=== PATIENT | male | born 1930 | race African-American/Black ===

== ENCOUNTER 2017-05-17 17:50 | Emergency (ER) | payer MEDICARE, OTHER ==
[~2017-05-17] VITALS: Ht 180.3 cm; Wt 73.5 kg
[~2017-05-17 17:50] MED LIST: HTN PO; LAMO5TB. PO; LEVE100020 PO
[2017-05-17 18:09] VITALS: BP 193/98
[2017-05-17] MEDS ORDERED: LIDOCAINE 1% Multi-Dose 20 ML VIAL. ONE (18:37)
[2017-05-17] MEDS ORDERED: LIDOCAINE 1% PF 30 ML VIAL. INJ ONE (18:45)
[2017-05-17] MEDS ORDERED: DIPHTH,PERTUSS(ACELL),TET TOX 0.5 ML DISP.SYRIN. VAX IM ONE (18:45)
[2017-05-17] MEDS ORDERED: NEOMY/BACITR/POLYMYXIN OINT PACKET. TP ONE (19:45)
--- NOTE | 2017-05-17 20:05 | PHYS DOC ---
Past History Past Medical History: High Cholesterol, Hypertension, Seizure, Other Past Surgical History: Other Smoking: Non-smoker Alcohol Use: Occasionally Drug Use: None Adult General Chief Complaint Chief Complaint: LACERATION/AVULSION HPI HPI Patient is a 86-year-old male brought to the ED by family members after a fall. He was going to the bank, he stepped up on the curb but the curb was higher than he thought, and he fell face forward onto the sidewalk. He broke his glasses. He has a laceration to his left eyebrow and one to his left hand. He is right-handed. He was able to ambulate and in fact drove himself home after the fall and family members brought him in. Patient denies head pain. He denies neck pain. He denies injury to his face other than his left eyebrow. He denies pain to either hand, denies wrist pain, denies knee pain. He doesn't know when his last tetanus shot was. He is not on a blood thinner. Review of Systems Review of Systems Constitutional: Denies fever or chills [] Eyes: Denies change in visual acuity, redness, or eye pain [] HENT: Denies nasal congestion or sore throat [] Respiratory: Denies cough or shortness of breath [] Cardiovascular: Denies chest pain GI: Denies abdominal pain, nausea, vomiting, bloody stools or diarrhea [] : Denies dysuria or hematuria [] Musculoskeletal: Denies back pain or joint pain [] Integument: As in history of present illness Neurologic: Denies headache, focal weakness or sensory changes [] Current Medications Current Medications Current Medications Medications (Trade) Dose Ordered Sig/Leana Start Time Stop Time Status Last Admin Dose Admin Diphtheria/ Tetanus/Acell Pertussis (Boostrix) 0.5 ml ONCE ONCE 05/17/17 18:45 05/17/17 18:47 DC 05/17/17 18:39 0.5 ML Lidocaine HCl 20 ml STK-MED ONCE 05/17/17 18:37 05/17/17 18:38 DC Neomycin/ Polymyxin/ Bacitracin (Triple Antibiotic Ointment) 1 pkt 1X ONCE 05/17/17 19:45 05/17/17 19:46 DC 05/17/17 19:34 1 PKT Allergies Allergies Allergies Coded Allergies Type Severity Reaction Last Updated Verified Jwbpdrt-Szi-Xdz Reductase Inhibitor Allergy Intermediate Shortness of Air 03/19 Yes lisinopril Allergy Intermediate short of breath 05/17/17 Yes Physical Exam Physical Exam Constitutional: Well developed, well nourished, no acute distress, non-toxic appearance. Alert, mentating normally. HENT: Scalp without injury, left eyebrow laterally has a abrasion/laceration 2 cm in length, there are small, superficial lacerations over the left cheek. No bony tenderness of the left eyebrow or left cheek area. Bilateral external ears normal, lips, teeth, mouth and injured, oropharynx moist, no oral exudates, nose normal. [] Eyes: No eye injury or eyelid injury, conjunctiva normal, no discharge. [] Neck: Normal range of motion, no tenderness, supple, no stridor. Cervical spine nontender to palpation. Skin: Warm, dry, no erythema, no rash. [] Extremities: Left hand: No bony tenderness to palpation. Full range of motion of all fingers. Laceration into subcutaneous fat over the palmar aspect of the left fifth MCP joint. Wrist, forearm, elbow, unremarkable. Right upper extremity uninjured, nontender to palpation. Neurologic: Alert and oriented X 3, normal motor function, normal sensory function, no focal deficits noted. [] Current Patient Data Vital Signs Vital Signs Date Time Temp Pulse Resp B/P (MAP) Pulse Ox O2 Delivery O2 Flow Rate FiO2 05/17/17 18:09 97.2 65 18 98 Room Air EKG EKG [] Radiology/Procedures Radiology/Procedures Three-view x-rays of the left hand read by me. No acute bony injury. [] Course & Med Decision Making Course & Med Decision Making Pertinent Labs and Imaging studies reviewed. (See chart for details) 86-year-old male with a mechanical fall and laceration to his left eyebrow and left hand. He is not on a blood thinner. He has remained alert and appropriate since the fall. He did not have really a head injury per se, more of a left cheek trauma. Lacerations were repaired. Patient discharged to home with his family to watch him. In stable condition. Procedure: Repair of lacerations by me Left eyebrow laceration 2 cm length Prepped with Betadine, anesthetized with lidocaine 1% plain, irrigated with normal saline using a splash shield. A minimal amount of debridement was done of some loose abraded skin. The laceration was closed with 4 simple interrupted sutures of 5-0 nylon. Good result. It was covered with triple antibiotic ointment. Left palm laceration 3 cm length Prepped with Betadine, anesthetized with lidocaine 1% plain, irrigated with normal saline using a splash shield. Explored, no foreign body. The laceration was closed with 7 simple interrupted sutures of 4-0 nylon. Good result. It was dressed with Telfa and a gauze wrap by nursing staff. [] Dragon Disclaimer Dragon Disclaimer This chart was dictated in whole or in part using Voice Recognition software in a busy, high-work load, and often noisy Emergency Department environment. It may contain unintended and wholly unrecognized errors or omissions. Departure Departure: Impression: Primary Impression: Fall (on)(from) sidewalk curb, initial encounter Additional Impressions: Laceration of left eyebrow Laceration of left hand Disposition: 01 HOME, SELF-CARE Condition: IMPROVED Referrals: YUMI BONDS MD (PCP) Patient Instructions: Head Injury, Adult, [id number]-[id number], Laceration Care, Adult , [id number] Additional Instructions: For the eyebrow laceration, you may wash it gently in the shower, Pat dry. Apply Neosporin ointment to cover it. It is not necessary to bandage. The stitches should be removed in 5-6 days. The smaller lacerations on the left cheek were repaired with skin glue. These may be wet briefly to shower or wash your face as needed. Do not use Neosporin ointment on these because it dissolves skin glue. For the left hand laceration, leave it bandaged for 24 hours, then you may wet briefly to shower. Pat dry. Bandage with a gauze wrap or Band-Aid. The stitches should be removed in 12-14 days. You will be stiff and sore tomorrow. You may take Tylenol or ibuprofen as recommended by your doctor. Ice to areas of pain if needed. Problem Qualifiers JENNY REMY MD May 17, 2017 20:05
--- NOTE | 2017-05-18 08:37 | RAD ---
Examination: 3 views of the left hand History: History of injury, fall, hand laceration Comparison: None available Findings: The alignment of the metacarpophalangeal joints, interphalangeal grossly appears unremarkable. There is no acute fracture identified. Moderate degenerative changes identified in the first carpometacarpal joint. Mild degenerative changes identified in the metacarpophalangeal joints, interphalangeal joints. Impression: No acute osseous findings.
== END 2017-05-17 20:17 | disposition home or self-care (01) ==
LOC: EDBD → ER 17:50
DX: S01.112A Laceration without foreign body of left eyelid and periocular area, initial encounter (principal); S61.412A Laceration without foreign body of left hand, initial encounter; E78.00 Pure hypercholesterolemia, unspecified; I10 Essential (primary) hypertension; Z88.8 Allergy status to other drugs, medicaments and biological substances; W17.89XA Other fall from one level to another, initial encounter; Y93.89 Activity, other specified; Y99.8 Other external cause status; Y92.480 Sidewalk as the place of occurrence of the external cause
CPT/HCPCS: 12001; 12011; 73130; 90471; 90715; 99284; J2001

== ENCOUNTER 2017-05-24 13:30 | Emergency (ER) | payer MEDICARE, OTHER ==
[~2017-05-24] VITALS: Ht 180.3 cm; Wt 73.5 kg
[2017-05-24 14:04] VITALS: BP 137/69
--- NOTE | 2017-05-24 14:11 | PHYS DOC ---
Past History Past Medical History: High Cholesterol, Hypertension, Seizure, Other Past Surgical History: Other Smoking: Non-smoker Alcohol Use: Occasionally Drug Use: None Adult General Chief Complaint Chief Complaint: SUTURE/STAPLE REMOVAL [facility] HPI Here for suture removal on laceration just lateral to the left brow Review of Systems Review of Systems Constitutional: Denies fever or chills [] Eyes: Denies change in visual acuity, redness, or eye pain [] HENT: Denies nasal congestion or sore throat [] Respiratory: Denies cough or shortness of breath [] Cardiovascular: No additional information not addressed in HPI [] GI: Denies abdominal pain, nausea, vomiting, bloody stools or diarrhea [] : Denies dysuria or hematuria [] Musculoskeletal: Denies back pain or joint pain [] Integument: Denies rash or skin lesions [] Neurologic: Denies headache, focal weakness or sensory changes [] Endocrine: Denies polyuria or polydipsia [] Allergies Allergies Allergies Coded Allergies Type Severity Reaction Last Updated Verified Kbvabsb-Cjj-Bna Reductase Inhibitor Allergy Intermediate Shortness of Air 03/19 Yes lisinopril Allergy Intermediate short of breath 05/17/17 Yes Physical Exam Physical Exam Constitutional: Well developed, well nourished, no acute distress, non-toxic appearance. [] HENT: Normocephalic, atraumatic, bilateral external ears normal, oropharynx moist, no oral exudates, nose normal. [] Eyes: PERRLA, EOMI, conjunctiva normal, no discharge. [] Neck: Normal range of motion, no tenderness, supple, no stridor. [] Cardiovascular:Heart rate regular rhythm, no murmur [] Lungs & Thorax: Bilateral breath sounds clear to auscultation [] Abdomen: Bowel sounds normal, soft, no tenderness, no masses, no pulsatile masses. [] Skin: Warm, dry, no erythema, no rash. Healing laceration just above the left brow Back: No tenderness, no CVA tenderness. [] Extremities: No tenderness, no cyanosis, no clubbing, ROM intact, no edema. [] Neurologic: Alert and oriented X 3, normal motor function, normal sensory function, no focal deficits noted. [] Psychologic: Affect normal, judgement normal, mood normal. [] Current Patient Data Vital Signs Vital Signs Date Time Temp Pulse Resp B/P (MAP) Pulse Ox O2 Delivery O2 Flow Rate FiO2 05/24/17 14:04 97.7 67 18 100 Room Air EKG EKG [] Radiology/Procedures Radiology/Procedures [] Impressions: Healing laceration Course & Med Decision Making Course & Med Decision Making Sutures were removed by the nursing staff [] Dragon Disclaimer Dragon Disclaimer This chart was dictated in whole or in part using Voice Recognition software in a busy, high-work load, and often noisy Emergency Department environment. It may contain unintended and wholly unrecognized errors or omissions. Departure Departure: Referrals: YUMI BONDS MD (PCP) REBEKAH BOOGIE MD May 24, 2017 14:11
== END 2017-05-24 14:19 | disposition home or self-care (01) ==
LOC: ER 13:30 → EDBD 13:30 → ER 14:19
DX: S01.112D Laceration without foreign body of left eyelid and periocular area, subsequent encounter (principal); E78.00 Pure hypercholesterolemia, unspecified; I10 Essential (primary) hypertension; Z88.8 Allergy status to other drugs, medicaments and biological substances; X58.XXXD Exposure to other specified factors, subsequent encounter; Y99.8 Other external cause status; Y92.89 Other specified places as the place of occurrence of the external cause
CPT/HCPCS: 99281

== ENCOUNTER 2017-06-02 14:39 | Emergency (ER) | payer MEDICARE, OTHER ==
[~2017-06-02] VITALS: Ht 180.3 cm; Wt 73.5 kg
[2017-06-02 14:39] VITALS: BP 158/70
--- NOTE | 2017-06-02 14:59 | PHYS DOC ---
Past History Past Medical History: High Cholesterol, Hypertension, Seizure, Other Past Surgical History: Other Smoking: Non-smoker Alcohol Use: Occasionally Drug Use: None Adult General Chief Complaint Chief Complaint: SUTURE/STAPLE REMOVAL HPI HPI Patient is a 87-year-old male presenting to the emergency department for evaluation of left hand suture removal. No Complaints and there is no signs or symptoms of infection. Review of Systems Review of Systems Constitutional: Denies fever or chills [] Integument: Denies redness or warmth Allergies Allergies Allergies Coded Allergies Type Severity Reaction Last Updated Verified Pmzmdvh-Jzt-Jjp Reductase Inhibitor Allergy Intermediate Shortness of Air 03/19 Yes lisinopril Allergy Intermediate short of breath 05/17/17 Yes Physical Exam Physical Exam Constitutional: Well developed, well nourished, no acute distress, non-toxic appearance. [] Skin: [address] with no surrounding erythema inflammation or pain. EKG EKG [] Radiology/Procedures Radiology/Procedures [] Course & Med Decision Making Course & Med Decision Making Wound is clean dry and intact and sutures removed with no complications. Dragon Disclaimer Dragon Disclaimer This chart was dictated in whole or in part using Voice Recognition software in a busy, high-work load, and often noisy Emergency Department environment. It may contain unintended and wholly unrecognized errors or omissions. Departure Departure: Impression: Primary Impression: Visit for suture removal Disposition: 01 HOME, SELF-CARE Condition: GOOD Referrals: YUMI BONDS MD (PCP) Patient Instructions: Suture Removal-Brief TEREZA HERZOG DO Jun 02, 2017 14:59
== END 2017-06-02 15:08 | disposition home or self-care (01) ==
LOC: ER 14:39
DX: S61.412D Laceration without foreign body of left hand, subsequent encounter (principal); I10 Essential (primary) hypertension; E78.00 Pure hypercholesterolemia, unspecified; Z88.8 Allergy status to other drugs, medicaments and biological substances; X58.XXXD Exposure to other specified factors, subsequent encounter; Y99.8 Other external cause status; Y92.89 Other specified places as the place of occurrence of the external cause
CPT/HCPCS: 99281

== ENCOUNTER 2019-04-28 13:05 | Emergency (ER) | payer MEDICARE, OTHER ==
[~2019-04-28] VITALS: Ht 175.3 cm; Wt 72.6 kg
[~2019-04-28 13:05] MED LIST changes: -LAMO5TB. PO; +LAMO5TB.5 PO
--- NOTE | 2019-04-28 14:03 | PHYS DOC ---
Past History Past Medical History: High Cholesterol, Hypertension, Seizure Past Surgical History: Other Smoking: Non-smoker Alcohol Use: None Drug Use: None Adult General Chief Complaint Chief Complaint: Neck Pain [facility] HPI 88-year-old male presents with neck pain. The patient tells me that the pain started 2 days ago. There was no particular inciting event, but it didn't start hurting after sleeping at night. The patient thinks he may have slept on to have a pillow. He presents today because the pain seems to be a little worse. He denies any numbness or tingling. It is bilateral pain in the upper trapezius distribution. He denies fever or chills. He denies trauma or fall. He has not had any recent changes in medications. Review of Systems Review of Systems Constitutional: Denies fever or chills [] Eyes: Denies change in visual acuity, redness, or eye pain [] HENT: Denies nasal congestion or sore throat [] Respiratory: Denies cough or shortness of breath [] Cardiovascular: No additional information not addressed in HPI [] GI: Denies abdominal pain, nausea, vomiting, bloody stools or diarrhea [] : Denies dysuria or hematuria [] Musculoskeletal: Neck pain[] Integument: Denies rash or skin lesions [] Neurologic: Denies headache, focal weakness or sensory changes [] Endocrine: Denies polyuria or polydipsia [] All other systems were reviewed and found to be within normal limits, except as documented in this note. Allergies Allergies Allergies Coded Allergies Type Severity Reaction Last Updated Verified Mwygecv-Xbv-Cyv Reductase Inhibitor Allergy Intermediate Shortness of Air 04/28/19 Yes lisinopril Allergy Intermediate short of breath 05/17/17 Yes Physical Exam Physical Exam Constitutional: Well developed, well nourished, no acute distress, non-toxic appearance. [] HENT: Normocephalic, atraumatic, bilateral external ears normal, oropharynx moist, no oral exudates, nose normal. [] Eyes: PERRLA, EOMI, conjunctiva normal, no discharge. [] Neck: Decreased range of motion due to pain, mild tenderness of the upper trapezius distribution bilaterally, supple, no stridor. [] Cardiovascular:Heart rate regular rhythm, no murmur [] Lungs & Thorax: Bilateral breath sounds clear to auscultation [] Abdomen: Bowel sounds normal, soft, no tenderness, no masses, no pulsatile masses. [] Skin: Warm, dry, no erythema, no rash. [] Back: No tenderness, no CVA tenderness. [] Extremities: No tenderness, no cyanosis, no clubbing, ROM intact, no edema. [] Neurologic: Alert and oriented X 3, normal motor function, normal sensory function, no focal deficits noted. [] Psychologic: Affect normal, judgement normal, mood normal. [] Current Patient Data Vital Signs Vital Signs Date Time Temp Pulse Resp B/P (MAP) Pulse Ox O2 Delivery O2 Flow Rate FiO2 04/28/19 13:20 97.5 76 18 98 Room Air EKG EKG [] Radiology/Procedures Radiology/Procedures [] Impressions: Examination: 3 views of the cervical spine HISTORY: History of neck pain, decreased range of motion COMPARISON: None available FINDINGS: The cervical vertebral body heights are maintained. There is straightening of normal cervical lordosis. Severe intervertebral disc height loss identified throughout the cervical spine particularly at C6-C7 vertebral levels. Facets are well aligned. No prevertebral soft tissue swelling identified. The lateral masses of C1 are aligned with C2 vertebra with C2 dens appears intact. Anterior osteophyte formation identified at C2, C3, C4, C5, C6, C7 vertebral levels. IMPRESSION: 1. Severe degenerative changes cervical spine. Electronically signed by: Francisco Ding MD (04/28/2019 2:23 PM) [facility] DICTATED AND SIGNED BY: FRANCISCO DING MD DATE: 04/28/19 1423 CC: ZORA HODGE DO; YUMI BONDS MD ~ Course & Med Decision Making Course & Med Decision Making Pertinent Labs and Imaging studies reviewed. (See chart for details) The patient's x-ray shows significant degenerative change. This could be the source of patient's pain. This could also be muscle spasm. I have advised that he take 400 mg of ibuprofen 3 times a day for a couple of days. He can also ice the area and used lidocaine patches for comfort. He is stable for discharge at this time. [] Dragon Disclaimer Dragon Disclaimer This electronic medical record was generated, in whole or in part, using a voice recognition dictation system. Departure Departure: Impression: Primary Impression: Degenerative disc disease, cervical Additional Impression: Neck pain Disposition: 01 HOME, SELF-CARE Condition: STABLE Referrals: YUMI BONDS MD (PCP) Patient Instructions: Cervical Strain and Sprain with Rehab-[facility] Problem Qualifiers ZORA HODGE DO April 28, 2019 14:03
--- NOTE | 2019-04-28 14:26 | RAD ---
Examination: 3 views of the cervical spine HISTORY: History of neck pain, decreased range of motion COMPARISON: None available FINDINGS: The cervical vertebral body heights are maintained. There is straightening of normal cervical lordosis. Severe intervertebral disc height loss identified throughout the cervical spine particularly at C6-C7 vertebral levels. Facets are well aligned. No prevertebral soft tissue swelling identified. The lateral masses of C1 are aligned with C2 vertebra with C2 dens appears intact. Anterior osteophyte formation identified at C2, C3, C4, C5, C6, C7 vertebral levels. IMPRESSION: 1. Severe degenerative changes cervical spine. Electronically signed by: Francisco Ding MD (04/28/2019 2:23 PM) [place] [id number]
[2019-04-28] MEDS ORDERED: cloNIDine HCL 0.1 MG TABLET PO ONE (14:45)
[2019-04-28] MEDS ORDERED: HYDR-3165 PO (14:45)
[2019-04-28] MEDS ORDERED: LIDO700A39 TP (14:45)
[2019-04-28] MEDS ORDERED: cloNIDine HCL 0.1 MG TABLET ONE (14:48)
[2019-04-28] MEDS ORDERED: HYDROcodone/APAP 5/325MG 1 TAB TABLET ONE (14:49)
[2019-04-28 14:50] VITALS: BP 217/87
[2019-04-28] MEDS ORDERED: HYDROcodone/APAP 5/325MG 1 TAB TABLET PO ONE (15:00)
== END 2019-04-28 14:52 | disposition home or self-care (01) ==
LOC: ER 13:05
DX: M47.892 Other spondylosis, cervical region (principal); E78.00 Pure hypercholesterolemia, unspecified; I10 Essential (primary) hypertension; Z88.8 Allergy status to other drugs, medicaments and biological substances
CPT/HCPCS: 72040; 99284